=== PATIENT | female | born 1965 | race Caucasian/White ===

== ENCOUNTER → 2016-10-09 10:46 | Outpatient (CLI) | payer BC ==
[2011-11-06 08:00] VITALS: BMI 27.1
[2016-10-09 11:38] LABS: BASOPHILS 0.6 % (0.0-2.0); EOSINOPHILS 2.1 % (0-7); IMMATURE GRANULOCYTES 0.2 % (0-5); LYMPHOCYTES 42.4 % (15-50); MCH 28.9 pg (26.0-34.0); MCHC 33.3 g/dL (31.0-37.0); MCV 86.6 fL (80.0-100.0); MEAN PLATELET VOLUME 9.1 fL (7.4-10.4); MONOCYTES 12.3 % (2-11); NEUTROPHILS 42.4 % (40-80); RBC 4.85 10x6/uL (4.00-5.40); RDW 12.6 % (11.5-14.5); WBC 5.4 10x3/uL (4.8-10.8)
[2016-10-09 11:51] LABS: ALBUMIN 3.9 g/dL (3.4-5.0); ALKALINE PHOSPHATASE 96 U/L (46-116); ALT (SGPT) 36 U/L (10-68); BILIRUBIN - TOTAL 0.42 mg/dL (0.2-1.3); CALC OSMOLALITY 278 mosm/kg (275-300); CALCIUM 9.5 mg/dL (8.5-10.1); CARBON DIOXIDE 32.6 mmol/L (21.0-32.0); CHLORIDE - SERUM 103 mmol/L (98-107); CHOL - HDL RATIO 4.4 ratio (2.3-4.1); CHOLESTEROL, TOTAL 187 mg/dL (0-200); CREATININE - SERUM 0.5 mg/dL (0.6-1.3); GLUCOSE 84 mg/dL (74-106); HDL CHOLESTEROL 43 mg/dL (32-96); LDL CHOLESTEROL 116 mg/dL (0-100); LDL-HDL RATIO 2.7 ratio (1.5-3.5); POTASSIUM - SERUM 4.1 mmol/L (3.5-5.1); PROTEIN - SERUM 7.6 g/dL (6.4-8.2); SODIUM 140 mmol/L (136-145); TRIGLYCERIDE 140 mg/dL (30-200); UREA NITROGEN 14 mg/dL (7-18); eGFR NON AFRICAN AMERICAN > 90 mL/min (90-120)
[2016-10-09 12:00] LABS: PLATELET COUNT 200 10x3/uL (130-400)
[2016-10-10 09:13] LABS: VITAMIN D 25 HYDROXY 46.6 ng/mL (30.0-100.0)
== END | disposition home or self-care (01) ==
LOC: D.LAB 10:46
PROVIDERS: Family Medicine
DX: Z00.00 Encounter for general adult medical examination without abnormal findings (principal)

== ENCOUNTER → 2017-02-27 07:42 | Outpatient (CLI) | payer BC ==
[2011-11-06 08:00] VITALS: BMI 27.1
== END | disposition home or self-care (01) ==
LOC: D.NM 07:42
DX: E05.90 Thyrotoxicosis, unspecified without thyrotoxic crisis or storm (principal)

== ENCOUNTER → 2017-07-04 18:13 | Outpatient (CLI) | payer MEDICAID ==
[2011-11-06 08:00] VITALS: BMI 27.1
== END | disposition home or self-care (01) ==
LOC: D.MAMMO 14:30
DX: N64.4 Mastodynia (principal)